=== PATIENT | female | born 1935 | race Caucasian/White ===

== ENCOUNTER → 2017-03-16 | Outpatient (CLI) | payer MEDICARE ==
[~2017-03-16] MED LIST: ACIP20TA5 PO; CARD240C5 PO; DIOV320T PO; FLON1SPR; LEVO75TA34 PO; LIPI20TA PO; METF1000 PO; NEUR100C PO; PREVINJ2 IM; SLOWTAB2 PO; VITA100041 PO; ZANTTAB PO
--- NOTE | 2017-03-16 10:34 | REPMRS ---
Patient History The patient states she had a clinical breast exam in April 2016. Family history of colorectal cancer in father, colorectal cancer in maternal grandmother, and colorectal cancer in paternal grandmother. Taking estrogen for 10 years. Digital Mammo Screening Bilat: March 16, 2017 - Exam #: [id number] Bilateral CC and MLO view(s) were taken. Technologist: Farzana Curran, Technologist Prior study comparison: March 06, 2016, bilateral digital mammo screening bilat performed at [facility]. February 22, 2015, bilateral digital mammo screening bilat performed at [facility]. January 25, 2014, bilateral digital mammo screening bilat performed at [facility]. FINDINGS: The breast tissue is heterogeneously dense. This may lower the sensitivity of mammography. There is a moderate amount of heterogeneously dense fibroglandular tissue which is fairly symmetric. There is atherosclerotic vascular calcification noted bilaterally. There is no interval development of dominant mass, architectural distortion, or clustered microcalcification typical of malignancy. There has been no change in the appearance of the mammogram from the prior studies. ASSESSMENT: BI-RADS/ACR category 1 mammogram. Negative. Recommendation Routine screening mammogram of both breasts in 1 year (for women over age 40). This mammogram was interpreted with the aid of an FDA-approved computer-aided dectection system. Electronically Signed By: Alex Kang MD 03/16/17 1034
== END ==
LOC: M RAD 09:16
PROVIDERS: ATTEND Nurse Practitioner Adult Health
DX: Z12.31 Encounter for screening mammogram for malignant neoplasm of breast (principal)

== ENCOUNTER 2017-03-17 07:08 | Outpatient (CLI) | payer MEDICARE ==
[~2017-03-17] VITALS: Ht 175.3 cm; Wt 57.2 kg
[~2017-03-17 07:08] MED LIST changes: -ZANTTAB PO
[2017-03-17] MEDS ORDERED: MAG SULF 1GM/100ML (MAG RUN) 100 ML IV ONE (08:00)
[2017-03-17] MEDS ORDERED: ZANTTAB PO (08:33)
== END 2017-03-17 09:05 | disposition home or self-care (01) ==
LOC: M INFU 07:08
PROVIDERS: ATTEND Nurse Practitioner Adult Health
DX: E83.42 Hypomagnesemia (principal); Z88.8 Allergy status to other drugs, medicaments and biological substances; Z79.84 Long term (current) use of oral hypoglycemic drugs; Z79.899 Other long term (current) drug therapy
CPT/HCPCS: 96365; J3475

== ENCOUNTER → 2017-05-15 | Outpatient (CLI) | payer MEDICARE ==
[~2017-05-15] MED LIST changes: +ACIP1TAB PO; -ACIP20TA5 PO; -METF1000 PO; +METF10004 PO; +VITA-182 PO; -VITA100041 PO; +ZANTTAB PO
--- NOTE | 2017-05-15 14:20 | REP ---
RIGHT HIP, TWO VIEWS: HISTORY: Pain. There is no acute fracture or dislocation. There is narrowing of the joint space. IMPRESSION: Degenerative change as described above. Signed by Yousuf Womack MD 05/15/2017 02:22 P
== END ==
LOC: M WUC 11:32
PROVIDERS: ATTEND Nurse Practitioner Family
DX: M25.551 Pain in right hip (principal)

== ENCOUNTER 2017-07-15 13:46 | Outpatient (CLI) | payer MEDICARE ==
[~2017-07-15] VITALS: Ht 149.9 cm; Wt 57.2 kg
[2017-07-15] MEDS ORDERED: MAG SULF 1GM/100ML (MAG RUN) 1 GM in APPROPRIATE DILUENT 1 EA IV ONE (14:00)
== END 2017-07-15 15:15 | disposition home or self-care (01) ==
LOC: M INFU 13:46
PROVIDERS: ATTEND Nurse Practitioner Adult Health
DX: E83.42 Hypomagnesemia (principal); Z88.8 Allergy status to other drugs, medicaments and biological substances; Z88.5 Allergy status to narcotic agent; Z96.1 Presence of intraocular lens; Z79.84 Long term (current) use of oral hypoglycemic drugs; Z79.899 Other long term (current) drug therapy
CPT/HCPCS: 96365; J3475